=== PATIENT | male | born 1945 | race African-American/Black ===

== ENCOUNTER 2019-03-13 12:11 | Inpatient (IN) | payer MEDICARE ==
[2019-03-13] VITALS (7 sets, daily range): BP systolic 93–134; BP diastolic 42–77
[~2019-03-13] VITALS: Ht 177.8 cm; Wt 56.7 kg
[2019-03-13] MEDS ORDERED: SODIUM CHLORIDE 0.9% 1,000 ML IV ONE (13:06)
[2019-03-13 14:34] LABS: BASOPHILS % 0.4 % (0.0-2.0); HEMATOCRIT. 21.4 % (42.0-52.0); LYMPHOCYTES % 7.8 % (20.0-50.0); MEAN CORPUSCULAR HEMOGLOBIN 27.9 pg (28.0-32.0); MEAN CORPUSCULAR VOLUME 86.8 fL (80.0-94.0); MEAN PLATELET VOLUME 10.4 fl (7.4-10.4); MONOCYTES % 4.9 % (2.0-8.0); NEUTROPHILS % 86.9 % (40.0-76.0); PLATELET 178 x1000/uL (130-400); RED BLOOD CELL COUNT 2.47 mill/uL (4.7-6.1); RED CELL DISTRIBUTION WIDTH 16.5 % (11.6-14.6)
[2019-03-13 14:38] LABS: HEMOGLOBIN. 6.9 g/dL (14.0-18.0)
[2019-03-13 14:41] LABS: CHLORIDE 105 mEq/L (98-107)
[2019-03-13 14:45] LABS: ETHANOL BLOOD < 10 mg/dL
[2019-03-13 15:22] LABS: CLARITY URINE CLOUDY (CLEAR); COLOR URINE DARK YELLOW (YELLOW); KETONES URINE TRACE (NEGATIVE); LEUKOCYTE ESTERASE URINE TRACE (NEGATIVE); NITRITE URINE POSITIVE (NEGATIVE); OCCULT BLOOD URINE NEGATIVE (NEGATIVE); PROTEIN URINE 1+ (NEGATIVE); SPECIFIC GRAVITY URINE 1.026 (1.005-1.030)
[2019-03-13] MEDS ORDERED: PANTOPRAZOLE SODIUM 40 MG/VIAL IV ONE (15:30)
[2019-03-13 15:38] LABS: *AMPHETAMINES SCREEN URINE NEGATIVE (NEGATIVE); *BARBITURATES SCREEN URINE NEGATIVE (NEGATIVE); CANNABINOID URINE SCREEN NEGATIVE (NEGATIVE)
[2019-03-13 15:39] LABS: *BENZODIAZEPINES SCREEN URINE NEGATIVE (NEGATIVE); *COCAINE SCREEN URINE NEGATIVE (NEGATIVE); METHADONE URINE SCREEN NEGATIVE (NEGATIVE); OPIATES URINE SCREEN PRESUMTIVE POSITIVE (NEGATIVE); PHENCYCLIDINE URINE SCREEN NEGATIVE (NEGATIVE)
[2019-03-13 18:16] LABS: PROTHROMBIN TIME > 100.0 sec (9.6-11.0)
[2019-03-13 18:17] LABS: INR > 10.0; PARTIAL THROMBOPLASTIN TIME > 200.0 sec (23.4-31.0)
[2019-03-13] MEDS ORDERED: DEXT 5%/0.45% NACL 1000ML 1,000 ML IV SCH (19:32)
[2019-03-13] MEDS ORDERED: GUAIFENESIN 200MG/10ML SUGAR FREE UDC PO PRN (19:45)
[2019-03-13] MEDS ORDERED: DOCUSATE SODIUM 100MG CAPSULE PO PRN (19:45)
[2019-03-13] MEDS ORDERED: MAGNESIUM/ALUMINUM HYDROXIDE/SIMETHICONE 30ML UDC PO PRN (19:45)
[2019-03-13] MEDS ORDERED: DEXTROSE 50% WATER 50ML SYRINGE IV PRN (19:45)
[2019-03-13] MEDS ORDERED: NA PHOS,M-B/NA PHOS,DI-BA ENEMA 118ML PR PRN (19:45)
[2019-03-13] MEDS ORDERED: ONDANSETRON HCL 4MG/2ML INJ IV PRN (19:45)
[2019-03-13] MEDS ORDERED: DIPHENHYDRAMINE 50MG/ML VIAL IV PRN (19:45)
[2019-03-13] MEDS ORDERED: CLONIDINE 0.1MG TABLET PO PRN (19:45)
[2019-03-13 21:25] LABS: TOTAL IRON BINDING CAPACITY 258 ug/dL (250-450)
[2019-03-13 21:43] LABS: FOLIC ACID (FOLATE) SERUM 4.9 ng/mL (>5.38)
[2019-03-13] MEDS: SODIUM CHLORIDE 0.9% INJ 3ML FLUSH IVF SCH (22:00)
[2019-03-13] MEDS: BLOOD SUGAR DIAGNOSTIC STRIP TEST SCH (22:15)
[2019-03-13] MEDS: INSULIN LISPRO 100 UNITS/ML SUBCUT SCH (22:20)
[2019-03-13] MEDS ORDERED: PHYTONADIONE 10 MG/10 ML ORALSYR PO NR (23:00)
[2019-03-14] VITALS (128 sets, daily range): BP systolic 68–172; BP diastolic 29–105
[2019-03-14] MEDS ORDERED: IPRATROPIUM/ALBUTEROL 0.5-3(2.5)MG/3ML NEB HHN SCH
[2019-03-14] MEDS: CEFTRIAXONE 1 G PREMIX 50 ML IV SCH (00:04)
[2019-03-14] MEDS ORDERED: FURO-152 PO (00:43)
[2019-03-14] MEDS ORDERED: WARF-53 PO (00:43)
[2019-03-14] MEDS ORDERED: SPIR25TA6 PO (00:43)
[2019-03-14] MEDS ORDERED: DIGO125T82 PO (00:43)
[2019-03-14] MEDS ORDERED: POTA10CA42 PO (00:43)
[2019-03-14] MEDS ORDERED: METO-385 PO (00:43)
[2019-03-14] MEDS ORDERED: THEO400T PO (00:43)
[2019-03-14] MEDS ORDERED: AMIO100T4 PO (00:43)
[2019-03-14] MEDS ORDERED: TAMS-11 PO (00:43)
[2019-03-14] MEDS ORDERED: SACU1TAB4 PO (00:43)
[2019-03-14] MEDS ORDERED: CLON-457 PO (00:43)
[2019-03-14] MEDS ORDERED: HYDR-4001 PO (00:45)
[2019-03-14] MEDS ORDERED: BACL-141 PO (00:45)
[2019-03-14 02:07] LABS: CREATINE KINASE MB FRACTION 13.3 ng/mL (0.5-3.6)
[2019-03-14 05:49] LABS: BASOPHILS % 0.2 % (0.0-2.0); EOSINOPHILS % 0.1 % (0.0-5.0); LYMPHOCYTES % 9.8 % (20.0-50.0); MEAN CORPUSCULAR HEMOGLOBIN 28.4 pg (28.0-32.0); MEAN CORPUSCULAR VOLUME 85.6 fL (80.0-94.0); MEAN PLATELET VOLUME 10.2 fl (7.4-10.4); MONOCYTES % 6.8 % (2.0-8.0); NEUTROPHILS % 83.1 % (40.0-76.0); PLATELET 163 x1000/uL (130-400); RED BLOOD CELL COUNT 2.25 mill/uL (4.7-6.1); RED CELL DISTRIBUTION WIDTH 16.2 % (11.6-14.6)
[2019-03-14 06:00] LABS: CHLORIDE 107 mEq/L (98-107)
[2019-03-14] MEDS: SODIUM CHLORIDE 0.9% INJ 3ML FLUSH IVF SCH ×3 (06:00→21:55)
[2019-03-14 06:08] LABS: LDL CHOLESTEROL 53 mg/dL (5-100)
[2019-03-14 06:10] LABS: HDL CHOLESTEROL 34 mg/dL (40-59)
[2019-03-14 06:13] LABS: CREATINE KINASE MB FRACTION 10.6 ng/mL (0.5-3.6)
[2019-03-14 06:21] LABS: CREATINE KINASE 1631 IU/L (39-308)
[2019-03-14 06:28] LABS: HEMOGLOBIN. 6.4 g/dL (14.0-18.0)
[2019-03-14 06:29] LABS: HEMATOCRIT. 19.2 % (42.0-52.0)
[2019-03-14] MEDS: INSULIN LISPRO 100 UNITS/ML SUBCUT SCH ×4 (06:59→21:00)
[2019-03-14] MEDS: BLOOD SUGAR DIAGNOSTIC STRIP TEST SCH ×4 (06:59→21:21)
[2019-03-14] MEDS ORDERED: LACTULOSE 20G/30ML UDC PO NR (08:45)
[2019-03-14 10:12] LABS: BG BASE EXCESS -0.1 mmol/L (-2.0-2.0); BG CARBOXYHEMOGLOBIN 1.6 % (0.5-1.5); BG DEOXYHEMOGLOBIN 1.7 % (0.0-5.0); BG FRACTION INSPIRED OXYGEN 36; BG HCO3 ACT 25.7 mmol/L (22.0-26.0); BG METHEMOGLOBIN 0.3 % (0.0-1.5); BG OXYGEN SATURATION 98.3 % (92.0-98.5); BG OXYHEMOGLOBIN 96.4 % (94.0-97.0); BG PCO2 48.3 mmHg (35.0-45.0); BG PH 7.344 (7.350-7.450); BG SAMPLE SITE RIGHT RADIAL; BG TOTAL HEMOGLOBIN 7.2 g/dL (12.0-18.0); BG VENT MODE NASAL CANNULA
[2019-03-14 12:15] LABS: HEMATOCRIT 21.4 % (42.0-52.0)
[2019-03-14 12:22] LABS: HEMOGLOBIN 6.9 g/dL (14.0-18.0)
[2019-03-14 12:36] LABS: PROTHROMBIN TIME 72.3 sec (9.6-11.0)
[2019-03-14 12:44] LABS: INR 7.7
[2019-03-14] MEDS ORDERED: ETOMIDATE 2MG/ML 10ML VIAL IV ONE (12:55)
[2019-03-14] MEDS ORDERED: SUCCINYLCHOLINE CHLORIDE 200MG/10ML IV ONE (12:55)
[2019-03-14] MEDS ORDERED: NOREPINEPHRINE 8 MG in DEXT 5% WATER 242 ML IV PRN (13:23)
[2019-03-14] MEDS ORDERED: PHYTONADIONE 10MG/ML AMP SUBCUT NR (13:31)
[2019-03-14] MEDS ORDERED: DOPAMINE 800MG PREMIX (DOUBLE) 250 ML IV ONE (13:35)
[2019-03-14] MEDS ORDERED: ALBUMIN HUMAN 25GM/100ML (25%) IV ONE (13:45)
[2019-03-14] MEDS ORDERED: NOREPINEPHRINE 4 MG in DEXT 5% WATER 246 ML IV PRN (13:45)
[2019-03-14] MEDS: NOREPINEPHRINE 8 MG in DEXTROSE 5% WATER 250 ML IV PRN (14:00)
[2019-03-14 14:29] LABS: BG BASE EXCESS 1.9 mmol/L (-2.0-2.0); BG DEOXYHEMOGLOBIN 0.6 % (0.0-5.0); BG FRACTION INSPIRED OXYGEN 100; BG HCO3 ACT 25.7 mmol/L (22.0-26.0); BG METHEMOGLOBIN 0.3 % (0.0-1.5); BG OXYGEN SATURATION 99.4 % (92.0-98.5); BG OXYHEMOGLOBIN 98.1 % (94.0-97.0); BG PCO2 36.4 mmHg (35.0-45.0); BG PH 7.467 (7.350-7.450); BG PO2 535.8 mmHg (75.0-100.0); BG SAMPLE SITE RIGHT RADIAL; BG TIDAL VOLUME(mL) 550 mL; BG VENT MODE VENT - A/C; BG VENT RATE 20 set
[2019-03-14] MEDS ORDERED: NOREPINEPHRINE 8MG in DEXT 5% WATER 250ML (DOUBLE CONC) IV PRN (14:30)
[2019-03-14] MEDS ORDERED: ALBUMIN HUMAN 25GM/100ML (25%) IV NR (14:30)
[2019-03-14] MEDS: IPRATROPIUM/ALBUTEROL 0.5-3(2.5)MG/3ML NEB HHN PRN (16:42)
[2019-03-14] MEDS ORDERED: PROPOFOL 10MG/ML 100ML 100 ML IV PRN (17:15)
[2019-03-14] MEDS ORDERED: VANCOMYCIN 2,000 MG in DEXT 5% WATER 500 ML IV SCH (17:30)
[2019-03-14] MEDS: METRONIDAZOLE 500 MG PREMIX 100 ML IV SCH (17:57)
[2019-03-14] MEDS: IPRATROPIUM/ALBUTEROL 0.5-3(2.5)MG/3ML NEB HHN SCH (20:40)
[2019-03-15] VITALS (107 sets, daily range): BP systolic 61–158; BP diastolic 18–104
[2019-03-15] MEDS: IPRATROPIUM/ALBUTEROL 0.5-3(2.5)MG/3ML NEB HHN SCH ×6 (00:19→21:01)
[2019-03-15] MEDS: METRONIDAZOLE 500 MG PREMIX 100 ML IV SCH ×3 (01:05→18:28)
[2019-03-15 01:17] LABS: HEMATOCRIT 20.3 % (42.0-52.0); HEMOGLOBIN 6.9 g/dL (14.0-18.0)
[2019-03-15 01:28] LABS: INR 2.1; PROTHROMBIN TIME 20.8 sec (9.6-11.0)
[2019-03-15] MEDS: CEFTRIAXONE 1 G PREMIX 50 ML IV SCH ×2 (01:47→22:41)
[2019-03-15] MEDS: LACTULOSE 20G/30ML UDC PO SCH ×3 (02:02→18:28)
[2019-03-15] MEDS: ACETAMINOPHEN 650MG/20.3ML UDC GT PRN ×2 (02:02→19:37)
[2019-03-15 05:59] LABS: BASOPHILS % 0.2 % (0.0-2.0); EOSINOPHILS % 0.1 % (0.0-5.0); LYMPHOCYTES % 9.1 % (20.0-50.0); MEAN CORPUSCULAR HEMOGLOBIN 28.2 pg (28.0-32.0); MEAN CORPUSCULAR VOLUME 84.2 fL (80.0-94.0); MEAN PLATELET VOLUME 10.1 fl (7.4-10.4); MONOCYTES % 7.4 % (2.0-8.0); NEUTROPHILS % 83.2 % (40.0-76.0); PLATELET 139 x1000/uL (130-400); RED CELL DISTRIBUTION WIDTH 16.2 % (11.6-14.6)
[2019-03-15] MEDS: SODIUM CHLORIDE 0.9% INJ 3ML FLUSH IVF SCH ×3 (06:00→22:00)
[2019-03-15 06:05] LABS: CHLORIDE 111 mEq/L (98-107)
[2019-03-15 06:14] LABS: CREATINE KINASE 883 IU/L (39-308)
[2019-03-15 06:15] LABS: HEMATOCRIT. 20.2 % (42.0-52.0); HEMOGLOBIN. 6.8 g/dL (14.0-18.0)
[2019-03-15] MEDS: BLOOD SUGAR DIAGNOSTIC STRIP TEST SCH ×4 (06:36→22:00)
[2019-03-15] MEDS: INSULIN LISPRO 100 UNITS/ML SUBCUT SCH ×4 (06:36→22:09)
[2019-03-15 09:12] LABS: BG CARBOXYHEMOGLOBIN 1.3 % (0.5-1.5); BG DEOXYHEMOGLOBIN 1.6 % (0.0-5.0); BG FRACTION INSPIRED OXYGEN 40; BG HCO3 ACT 29.8 mmol/L (22.0-26.0); BG METHEMOGLOBIN 0.1 % (0.0-1.5); BG OXYGEN SATURATION 98.4 % (92.0-98.5); BG PCO2 39.7 mmHg (35.0-45.0); BG PH 7.493 (7.350-7.450); BG PO2 145.2 mmHg (75.0-100.0); BG SAMPLE SITE RIGHT RADIAL; BG TIDAL VOLUME(mL) 550 mL; BG TOTAL HEMOGLOBIN 6.7 g/dL (12.0-18.0); BG VENT MODE VENT - A/C; BG VENT RATE 20 set
[2019-03-15] MEDS: DEXTROSE 5% WATER 1,000 ML IV SCH (09:54)
[2019-03-15 10:05] LABS: PARTIAL THROMBOPLASTIN TIME 35.7 sec (23.4-31.0); PROTHROMBIN TIME 20.3 sec (9.6-11.0)
[2019-03-15 16:11] LABS: HEMATOCRIT 24.6 % (42.0-52.0); HEMOGLOBIN 8.1 g/dL (14.0-18.0)
[2019-03-15] MEDS ORDERED: LACTULOSE 20G/30ML UDC PO SCH (17:00)
[2019-03-15] MEDS ORDERED: VANCOMYCIN 1500MG in DEXTROSE 5% WATER 250ML IV SCH (18:30)
[2019-03-15 23:24] LABS: HEMATOCRIT 21.7 % (42.0-52.0); HEMOGLOBIN 7.1 g/dL (14.0-18.0)
[2019-03-15 23:33] LABS: INR 1.7; PROTHROMBIN TIME 16.7 sec (9.6-11.0)
[2019-03-16] VITALS (100 sets, daily range): BP systolic 84–162; BP diastolic 19–116
[2019-03-16] MEDS: IPRATROPIUM/ALBUTEROL 0.5-3(2.5)MG/3ML NEB HHN SCH ×5 (00:32→20:29)
[2019-03-16] MEDS: METRONIDAZOLE 500 MG PREMIX 100 ML IV SCH ×3 (01:29→18:33)
[2019-03-16] MEDS: NOREPINEPHRINE 8 MG in DEXTROSE 5% WATER 250 ML IV PRN (03:10)
[2019-03-16] MEDS: PROPOFOL 10MG/ML 100ML 100 ML IV PRN (03:10)
[2019-03-16 05:43] LABS: BASOPHILS % 0.2 % (0.0-2.0); EOSINOPHILS % 0.7 % (0.0-5.0); HEMATOCRIT. 24.3 % (42.0-52.0); HEMOGLOBIN. 8.1 g/dL (14.0-18.0); LYMPHOCYTES % 9.8 % (20.0-50.0); MEAN CORPUSCULAR HEMOGLOBIN 28.3 pg (28.0-32.0); MEAN CORPUSCULAR VOLUME 85.4 fL (80.0-94.0); MEAN PLATELET VOLUME 9.8 fl (7.4-10.4); MONOCYTES % 7.7 % (2.0-8.0); NEUTROPHILS % 81.6 % (40.0-76.0); PLATELET 138 x1000/uL (130-400); RED BLOOD CELL COUNT 2.84 mill/uL (4.7-6.1); RED CELL DISTRIBUTION WIDTH 16.2 % (11.6-14.6)
[2019-03-16] MEDS: SODIUM CHLORIDE 0.9% INJ 3ML FLUSH IVF SCH ×3 (05:48→21:03)
[2019-03-16] MEDS: BLOOD SUGAR DIAGNOSTIC STRIP TEST SCH ×4 (05:48→20:57)
[2019-03-16] MEDS: INSULIN LISPRO 100 UNITS/ML SUBCUT SCH ×4 (05:48→21:00)
[2019-03-16 05:50] LABS: INR 1.6; PARTIAL THROMBOPLASTIN TIME 30.9 sec (23.4-31.0); PROTHROMBIN TIME 15.9 sec (9.6-11.0)
[2019-03-16 05:56] LABS: CHLORIDE 112 mEq/L (98-107)
[2019-03-16 06:07] LABS: PHOSPHORUS 2.6 mg/dL (2.5-4.9)
[2019-03-16 06:22] LABS: CREATINE KINASE 1296 IU/L (39-308)
[2019-03-16 07:28] LABS: BG BASE EXCESS 2.9 mmol/L (-2.0-2.0); BG CARBOXYHEMOGLOBIN 1.3 % (0.5-1.5); BG FRACTION INSPIRED OXYGEN 40; BG HCO3 ACT 28.1 mmol/L (22.0-26.0); BG METHEMOGLOBIN 0.2 % (0.0-1.5); BG OXYHEMOGLOBIN 96.5 % (94.0-97.0); BG PCO2 45.9 mmHg (35.0-45.0); BG PH 7.404 (7.350-7.450); BG PO2 130.8 mmHg (75.0-100.0); BG SAMPLE SITE RIGHT RADIAL; BG TIDAL VOLUME(mL) 550 mL; BG TOTAL HEMOGLOBIN 8.6 g/dL (12.0-18.0); BG VENT MODE VENT - A/C; BG VENT RATE 16 set
[2019-03-16] MEDS ORDERED: POTASSIUM CHLORIDE INJ 40 MEQ in DEXT 5% WATER 250 ML IV NR (08:00)
[2019-03-16] MEDS: LACTULOSE 20G/30ML UDC PO SCH ×3 (08:47→16:40)
[2019-03-16] MEDS ORDERED: LORAZEPAM 2MG/ML CPJ IV PRN (10:08)
[2019-03-16] MEDS: VANCOMYCIN 1 G PREMIX 200 ML IV SCH ×2 (11:31→21:03)
[2019-03-16 12:09] LABS: BG BASE EXCESS 3.5 mmol/L (-2.0-2.0); BG FRACTION INSPIRED OXYGEN 40; BG HCO3 ACT 29.2 mmol/L (22.0-26.0); BG OXYGEN SATURATION 91.9 % (92.0-98.5); BG PCO2 50.8 mmHg (35.0-45.0); BG PH 7.378 (7.350-7.450); BG PO2 64.8 mmHg (75.0-100.0); BG PRESSURE SUPPORT 8; BG SAMPLE SITE RIGHT RADIAL; BG VENT MODE VENT - CPAP
[2019-03-16] MEDS: DEXTROSE 5% WATER 1,000 ML IV SCH (15:12)
[2019-03-16 17:14] LABS: BG BASE EXCESS 1.2 mmol/L (-2.0-2.0); BG CARBOXYHEMOGLOBIN 1.1 % (0.5-1.5); BG DEOXYHEMOGLOBIN 13.2 % (0.0-5.0); BG HCO3 ACT 27.6 mmol/L (22.0-26.0); BG METHEMOGLOBIN 0.1 % (0.0-1.5); BG OXYGEN SATURATION 86.6 % (92.0-98.5); BG OXYHEMOGLOBIN 85.6 % (94.0-97.0); BG PCO2 53.5 mmHg (35.0-45.0); BG PO2 51.6 mmHg (75.0-100.0); BG SAMPLE SITE RIGHT RADIAL; BG TOTAL HEMOGLOBIN 8.9 g/dL (12.0-18.0); BG VENT MODE MASK - AEROSOL
[2019-03-16] MEDS ORDERED: PROPOFOL 10MG/ML 100ML 100 ML IV PRN ×2 (17:30)
[2019-03-16 18:05] LABS: BG BASE EXCESS 0.3 mmol/L (-2.0-2.0); BG CARBOXYHEMOGLOBIN 0.8 % (0.5-1.5); BG DEOXYHEMOGLOBIN 2.7 % (0.0-5.0); BG HCO3 ACT 27.5 mmol/L (22.0-26.0); BG METHEMOGLOBIN 0.4 % (0.0-1.5); BG OXYGEN SATURATION 97.3 % (92.0-98.5); BG OXYHEMOGLOBIN 96.1 % (94.0-97.0); BG PCO2 56.9 mmHg (35.0-45.0); BG PH 7.302 (7.350-7.450); BG PO2 113.9 mmHg (75.0-100.0); BG SAMPLE SITE RIGHT RADIAL; BG TIDAL VOLUME(mL) 500 mL; BG VENT MODE VENT - A/C; BG VENT RATE 16 set
[2019-03-16] MEDS: CEFTRIAXONE 1 G PREMIX 50 ML IV SCH (22:56)
[2019-03-17] VITALS (92 sets, daily range): BP systolic 80–137; BP diastolic 37–85
[2019-03-17] MEDS: IPRATROPIUM/ALBUTEROL 0.5-3(2.5)MG/3ML NEB HHN SCH ×6 (00:11→19:40)
[2019-03-17] MEDS: ACETYLCYSTEINE 100MG/ML 10% VIAL 4ML INH SCH ×2 (00:11→15:00)
[2019-03-17] MEDS: METRONIDAZOLE 500 MG PREMIX 100 ML IV SCH ×3 (02:17→17:04)
[2019-03-17] MEDS: PROPOFOL 10MG/ML 100ML 100 ML IV PRN ×2 (02:18→17:47)
[2019-03-17] MEDS: DEXTROSE 5% WATER 1,000 ML IV SCH ×2 (04:44→17:46)
[2019-03-17] MEDS: SODIUM CHLORIDE 0.9% INJ 3ML FLUSH IVF SCH ×3 (05:03→21:22)
[2019-03-17 05:27] LABS: HEMATOCRIT. 24.6 % (42.0-52.0); HEMOGLOBIN. 8.1 g/dL (14.0-18.0); MEAN CORPUSCULAR HEMOGLOBIN 28.4 pg (28.0-32.0); MEAN CORPUSCULAR VOLUME 86.4 fL (80.0-94.0); MEAN PLATELET VOLUME 9.8 fl (7.4-10.4); PLATELET 158 x1000/uL (130-400); RED BLOOD CELL COUNT 2.85 mill/uL (4.7-6.1); RED CELL DISTRIBUTION WIDTH 16.6 % (11.6-14.6)
[2019-03-17 05:41] LABS: CHLORIDE 112 mEq/L (98-107)
[2019-03-17 05:50] LABS: PHOSPHORUS 2.2 mg/dL (2.5-4.9)
[2019-03-17] MEDS: BLOOD SUGAR DIAGNOSTIC STRIP TEST SCH ×4 (06:07→20:08)
[2019-03-17] MEDS: INSULIN LISPRO 100 UNITS/ML SUBCUT SCH ×4 (06:07→20:08)
[2019-03-17] MEDS: ACETAMINOPHEN 650MG SUPP PR PRN (06:18)
[2019-03-17] MEDS: NOREPINEPHRINE 8 MG in DEXTROSE 5% WATER 250 ML IV PRN (08:13)
[2019-03-17] MEDS: VANCOMYCIN 1 G PREMIX 200 ML IV SCH (08:36)
[2019-03-17] MEDS: LACTULOSE 20G/30ML UDC PO SCH ×2 (09:00→17:04)
[2019-03-17 09:08] LABS: BG BASE EXCESS 2.1 mmol/L (-2.0-2.0); BG CARBOXYHEMOGLOBIN 0.1 % (0.5-1.5); BG DEOXYHEMOGLOBIN 0.8 % (0.0-5.0); BG FRACTION INSPIRED OXYGEN 80; BG HCO3 ACT 27.1 mmol/L (22.0-26.0); BG OXYGEN SATURATION 99.2 % (92.0-98.5); BG OXYHEMOGLOBIN 99.1 % (94.0-97.0); BG PCO2 43.7 mmHg (35.0-45.0); BG PO2 292.1 mmHg (75.0-100.0); BG SAMPLE SITE RIGHT RADIAL; BG TIDAL VOLUME(mL) 500 mL; BG TOTAL HEMOGLOBIN 10.5 g/dL (12.0-18.0); BG VENT MODE VENT - A/C; BG VENT RATE 18 set
[2019-03-17] MEDS ORDERED: VECURONIUM BROMIDE 10 MG/VIAL IV ONE (09:09)
[2019-03-17] MEDS ORDERED: ETOMIDATE 2MG/ML 10ML VIAL IV ONE (09:09)
[2019-03-17] MEDS ORDERED: SODIUM CHLORIDE 0.9% 10ML VIAL ONE (09:09)
[2019-03-17] MEDS ORDERED: POTASSIUM PHOS,M-BASIC-D-BASIC 15 MMOL in DEXT 5% WATER 245 ML IV SCH (10:00)
[2019-03-17] MEDS ORDERED: PHYTONADIONE 10MG/ML AMP SUBCUT NR (11:15)
[2019-03-17 11:35] LABS: NUCLEATED RED BLOOD CELLS 1 /100 WBC; PLATELET ESTIMATE NORMAL
[2019-03-17] MEDS: PANTOPRAZOLE SODIUM 40 MG/VIAL IV SCH (12:06)
[2019-03-17] MEDS: CEFEPIME 1,000 MG in DEXTROSE 5% WATER 50 ML IV SCH ×2 (12:06→20:09)
[2019-03-17] MEDS: ACETAMINOPHEN 650MG/20.3ML UDC GT PRN (20:09)
[2019-03-18] VITALS (95 sets, daily range): BP systolic 83–146; BP diastolic 28–90
[2019-03-18] MEDS: IPRATROPIUM/ALBUTEROL 0.5-3(2.5)MG/3ML NEB HHN SCH ×6 (00:44→19:49)
[2019-03-18] MEDS: ACETYLCYSTEINE 100MG/ML 10% VIAL 4ML INH SCH ×3 (00:46→17:01)
[2019-03-18] MEDS: METRONIDAZOLE 500 MG PREMIX 100 ML IV SCH ×3 (02:44→17:31)
[2019-03-18 04:54] LABS: HEMATOCRIT. 25.4 % (42.0-52.0); HEMOGLOBIN. 8.1 g/dL (14.0-18.0); MEAN CORPUSCULAR VOLUME 87.4 fL (80.0-94.0); MEAN PLATELET VOLUME 10.1 fl (7.4-10.4); PLATELET 155 x1000/uL (130-400); RED BLOOD CELL COUNT 2.91 mill/uL (4.7-6.1); RED CELL DISTRIBUTION WIDTH 16.5 % (11.6-14.6)
[2019-03-18 04:59] LABS: CHLORIDE 111 mEq/L (98-107)
[2019-03-18 05:08] LABS: PHOSPHORUS 3.2 mg/dL (2.5-4.9)
[2019-03-18] MEDS: DEXTROSE 5% WATER 1,000 ML IV SCH ×2 (05:09→11:30)
[2019-03-18] MEDS: VANCOMYCIN 1500MG in DEXTROSE 5% WATER 250ML IV SCH (05:10)
[2019-03-18] MEDS: SODIUM CHLORIDE 0.9% INJ 3ML FLUSH IVF SCH ×3 (05:10→21:23)
[2019-03-18] MEDS: PROPOFOL 10MG/ML 100ML 100 ML IV PRN ×2 (05:11→17:16)
[2019-03-18 05:53] LABS: INR 1.3; PARTIAL THROMBOPLASTIN TIME 24.7 sec (23.4-31.0)
[2019-03-18] MEDS: INSULIN LISPRO 100 UNITS/ML SUBCUT SCH ×4 (05:59→21:00)
[2019-03-18] MEDS: BLOOD SUGAR DIAGNOSTIC STRIP TEST SCH ×4 (05:59→21:16)
[2019-03-18] MEDS ORDERED: PHYTONADIONE 10MG/ML AMP SUBCUT NR (06:00)
[2019-03-18] MEDS: NOREPINEPHRINE 8 MG in DEXTROSE 5% WATER 250 ML IV PRN (07:37)
[2019-03-18 07:38] LABS: BG CARBOXYHEMOGLOBIN 1.1 % (0.5-1.5); BG FRACTION INSPIRED OXYGEN 40; BG HCO3 ACT 27.6 mmol/L (22.0-26.0); BG METHEMOGLOBIN 0.3 % (0.0-1.5); BG OXYHEMOGLOBIN 96.6 % (94.0-97.0); BG PCO2 48.2 mmHg (35.0-45.0); BG PH 7.375 (7.350-7.450); BG PO2 114.6 mmHg (75.0-100.0); BG SAMPLE SITE RIGHT RADIAL; BG TIDAL VOLUME(mL) 500 mL; BG TOTAL HEMOGLOBIN 8.4 g/dL (12.0-18.0); BG VENT MODE VENT - A/C; BG VENT RATE 18 set
[2019-03-18] MEDS: LACTULOSE 20G/30ML UDC PO SCH ×2 (09:00→18:18)
[2019-03-18] MEDS: PANTOPRAZOLE SODIUM 40 MG/VIAL IV SCH (09:19)
[2019-03-18] MEDS: CEFEPIME 1,000 MG in DEXTROSE 5% WATER 50 ML IV SCH ×2 (09:20→21:23)
[2019-03-18 09:49] LABS: PLATELET ESTIMATE NORMAL
[2019-03-18] MEDS ORDERED: ALBUMIN HUMAN 25GM/100ML (25%) IV SCH (10:00)
[2019-03-18] MEDS ORDERED: MIDAZOLAM HCL 5 MG/5 ML VIAL ONE (14:38)
[2019-03-18] MEDS ORDERED: FENTANYL CITRATE/PF 50MCG/ML 2ML VIAL ONE (14:38)
[2019-03-18] MEDS ORDERED: SIMETHICONE 40 MG/0.6 ML 30ML ONE (16:30)
[2019-03-19] VITALS (79 sets, daily range): BP systolic 75–136; BP diastolic 45–73
[2019-03-19] MEDS: ACETYLCYSTEINE 100MG/ML 10% VIAL 4ML INH SCH ×2 (00:08→08:06)
[2019-03-19] MEDS: IPRATROPIUM/ALBUTEROL 0.5-3(2.5)MG/3ML NEB HHN SCH ×6 (00:08→20:33)
[2019-03-19] MEDS: VANCOMYCIN 1500MG in DEXTROSE 5% WATER 250ML IV SCH (00:32)
[2019-03-19] MEDS: DEXTROSE 5% WATER 1,000 ML IV SCH ×2 (00:32→21:18)
[2019-03-19] MEDS: METRONIDAZOLE 500 MG PREMIX 100 ML IV SCH ×3 (01:47→16:40)
[2019-03-19] MEDS: PROPOFOL 10MG/ML 100ML 100 ML IV PRN (03:23)
[2019-03-19 05:16] LABS: HEMATOCRIT. 25.1 % (42.0-52.0); MEAN CORPUSCULAR HEMOGLOBIN 28.1 pg (28.0-32.0); MEAN CORPUSCULAR VOLUME 88.2 fL (80.0-94.0); MEAN PLATELET VOLUME 10.4 fl (7.4-10.4); PLATELET 163 x1000/uL (130-400); RED BLOOD CELL COUNT 2.84 mill/uL (4.7-6.1); RED CELL DISTRIBUTION WIDTH 16.9 % (11.6-14.6)
[2019-03-19 05:46] LABS: PHOSPHORUS 3.3 mg/dL (2.5-4.9)
[2019-03-19] MEDS: BLOOD SUGAR DIAGNOSTIC STRIP TEST SCH ×4 (06:06→21:18)
[2019-03-19] MEDS: SODIUM CHLORIDE 0.9% INJ 3ML FLUSH IVF SCH ×3 (06:06→21:18)
[2019-03-19] MEDS: INSULIN LISPRO 100 UNITS/ML SUBCUT SCH ×4 (06:06→21:00)
[2019-03-19] MEDS: NOREPINEPHRINE 8 MG in DEXTROSE 5% WATER 250 ML IV PRN ×2 (06:37→08:08)
[2019-03-19 07:44] LABS: PLATELET ESTIMATE NORMAL
[2019-03-19] MEDS: PANTOPRAZOLE SODIUM 40 MG/VIAL IV SCH (08:08)
[2019-03-19] MEDS: CEFEPIME 1,000 MG in DEXTROSE 5% WATER 50 ML IV SCH ×2 (08:09→21:18)
[2019-03-19 08:17] LABS: BG BASE EXCESS 2.4 mmol/L (-2.0-2.0); BG CARBOXYHEMOGLOBIN 0.7 % (0.5-1.5); BG DEOXYHEMOGLOBIN 1.4 % (0.0-5.0); BG FRACTION INSPIRED OXYGEN 40; BG HCO3 ACT 27.6 mmol/L (22.0-26.0); BG METHEMOGLOBIN 0.4 % (0.0-1.5); BG OXYGEN SATURATION 98.6 % (92.0-98.5); BG OXYHEMOGLOBIN 97.5 % (94.0-97.0); BG PCO2 46.4 mmHg (35.0-45.0); BG PH 7.393 (7.350-7.450); BG PO2 141.6 mmHg (75.0-100.0); BG SAMPLE SITE RIGHT RADIAL; BG TIDAL VOLUME(mL) 500 mL; BG TOTAL HEMOGLOBIN 7.7 g/dL (12.0-18.0); BG VENT MODE VENT - A/C; BG VENT RATE 18 set
[2019-03-19] MEDS: LACTULOSE 20G/30ML UDC PO SCH ×2 (10:25→16:32)
[2019-03-19] MEDS ORDERED: VANCOMYCIN 1500MG in DEXTROSE 5% WATER 250ML IV NR (19:00)
[2019-03-20] VITALS (89 sets, daily range): BP systolic 91–139; BP diastolic 49–74
[2019-03-20] MEDS: IPRATROPIUM/ALBUTEROL 0.5-3(2.5)MG/3ML NEB HHN SCH ×6 (00:42→20:30)
[2019-03-20] MEDS: METRONIDAZOLE 500 MG PREMIX 100 ML IV SCH ×3 (02:15→17:41)
[2019-03-20 05:42] LABS: HEMATOCRIT. 23.4 % (42.0-52.0); HEMOGLOBIN. 7.7 g/dL (14.0-18.0); MEAN CORPUSCULAR HEMOGLOBIN 28.6 pg (28.0-32.0); MEAN PLATELET VOLUME 10.5 fl (7.4-10.4); PLATELET 188 x1000/uL (130-400); RED BLOOD CELL COUNT 2.69 mill/uL (4.7-6.1); RED CELL DISTRIBUTION WIDTH 16.8 % (11.6-14.6)
[2019-03-20] MEDS ORDERED: DILTIAZEM HCL 5MG/ML 5ML VIAL IV ONE (05:45)
[2019-03-20 05:54] LABS: PHOSPHORUS 2.9 mg/dL (2.5-4.9)
[2019-03-20] MEDS: INSULIN LISPRO 100 UNITS/ML SUBCUT SCH ×4 (06:23→20:26)
[2019-03-20] MEDS: BLOOD SUGAR DIAGNOSTIC STRIP TEST SCH ×4 (06:23→20:26)
[2019-03-20] MEDS: SODIUM CHLORIDE 0.9% INJ 3ML FLUSH IVF SCH ×3 (06:23→21:48)
[2019-03-20 07:32] LABS: PLATELET ESTIMATE NORMAL
[2019-03-20 07:46] LABS: BG CARBOXYHEMOGLOBIN 1.1 % (0.5-1.5); BG DEOXYHEMOGLOBIN 1.3 % (0.0-5.0); BG FRACTION INSPIRED OXYGEN 40; BG HCO3 ACT 27.1 mmol/L (22.0-26.0); BG METHEMOGLOBIN 0.4 % (0.0-1.5); BG OXYGEN SATURATION 98.7 % (92.0-98.5); BG OXYHEMOGLOBIN 97.2 % (94.0-97.0); BG PH 7.397 (7.350-7.450); BG PO2 133.7 mmHg (75.0-100.0); BG PRESSURE SUPPORT 12; BG SAMPLE SITE RIGHT RADIAL; BG TIDAL VOLUME(mL) 500 mL; BG TOTAL HEMOGLOBIN 7.9 g/dL (12.0-18.0); BG VENT MODE VENT - SIMV; BG VENT RATE 8 set
[2019-03-20] MEDS: LACTULOSE 20G/30ML UDC PO SCH ×2 (08:26→16:17)
[2019-03-20] MEDS: PANTOPRAZOLE SODIUM 40 MG/VIAL IV SCH (08:26)
[2019-03-20] MEDS: CEFEPIME 1,000 MG in DEXTROSE 5% WATER 50 ML IV SCH (08:27)
[2019-03-20] MEDS: DEXT 5% WATER + KCL 20MEQ/L 1,000 ML IV SCH (11:54)
[2019-03-21] VITALS (91 sets, daily range): BP systolic 86–162; BP diastolic 46–94
[2019-03-21] MEDS: IPRATROPIUM/ALBUTEROL 0.5-3(2.5)MG/3ML NEB HHN SCH ×6 (00:22→20:26)
[2019-03-21] MEDS: METRONIDAZOLE 500 MG PREMIX 100 ML IV SCH ×3 (01:37→17:19)
[2019-03-21] MEDS: DEXT 5% WATER + KCL 20MEQ/L 1,000 ML IV SCH ×2 (01:37→17:19)
[2019-03-21 05:34] LABS: BASOPHILS % 0.2 % (0.0-2.0); EOSINOPHILS % 2.8 % (0.0-5.0); HEMATOCRIT. 27.3 % (42.0-52.0); HEMOGLOBIN. 8.6 g/dL (14.0-18.0); LYMPHOCYTES % 11.3 % (20.0-50.0); MEAN CORPUSCULAR HEMOGLOBIN 27.8 pg (28.0-32.0); MEAN CORPUSCULAR VOLUME 88.3 fL (80.0-94.0); MEAN PLATELET VOLUME 10.6 fl (7.4-10.4); MONOCYTES % 8.3 % (2.0-8.0); NEUTROPHILS % 77.4 % (40.0-76.0); PLATELET 247 x1000/uL (130-400); RED BLOOD CELL COUNT 3.09 mill/uL (4.7-6.1); RED CELL DISTRIBUTION WIDTH 17.1 % (11.6-14.6)
[2019-03-21] MEDS: SODIUM CHLORIDE 0.9% INJ 3ML FLUSH IVF SCH ×3 (05:34→22:12)
[2019-03-21 05:40] LABS: CHLORIDE 107 mEq/L (98-107)
[2019-03-21 05:51] LABS: CREATINE KINASE 152 IU/L (39-308)
[2019-03-21] MEDS: BLOOD SUGAR DIAGNOSTIC STRIP TEST SCH ×4 (06:34→21:00)
[2019-03-21] MEDS: INSULIN LISPRO 100 UNITS/ML SUBCUT SCH ×4 (06:34→22:12)
[2019-03-21 08:57] LABS: BG BASE EXCESS 3.4 mmol/L (-2.0-2.0); BG CARBOXYHEMOGLOBIN 1.1 % (0.5-1.5); BG DEOXYHEMOGLOBIN 1.3 % (0.0-5.0); BG FRACTION INSPIRED OXYGEN 40; BG HCO3 ACT 28.8 mmol/L (22.0-26.0); BG METHEMOGLOBIN 0.3 % (0.0-1.5); BG OXYGEN SATURATION 98.7 % (92.0-98.5); BG OXYHEMOGLOBIN 97.3 % (94.0-97.0); BG PCO2 48.6 mmHg (35.0-45.0); BG PH 7.391 (7.350-7.450); BG PO2 131.6 mmHg (75.0-100.0); BG PRESSURE SUPPORT 12; BG SAMPLE SITE RIGHT RADIAL; BG TIDAL VOLUME(mL) 500 mL; BG TOTAL HEMOGLOBIN 8.2 g/dL (12.0-18.0); BG VENT MODE VENT - SIMV; BG VENT RATE 8 set
[2019-03-21] MEDS: PANTOPRAZOLE SODIUM 40 MG/VIAL IV SCH (08:59)
[2019-03-21] MEDS: CEFEPIME 1,000 MG in DEXTROSE 5% WATER 50 ML IV SCH (08:59)
[2019-03-21] MEDS: LACTULOSE 20G/30ML UDC PO SCH ×2 (08:59→17:19)
[2019-03-22] VITALS (96 sets, daily range): BP systolic 92–175; BP diastolic 46–92
[2019-03-22] MEDS: IPRATROPIUM/ALBUTEROL 0.5-3(2.5)MG/3ML NEB HHN SCH ×6 (00:31→20:27)
[2019-03-22] MEDS: METRONIDAZOLE 500 MG PREMIX 100 ML IV SCH ×3 (02:36→17:10)
[2019-03-22 05:52] LABS: HEMATOCRIT. 25.1 % (42.0-52.0); MEAN CORPUSCULAR HEMOGLOBIN 28.1 pg (28.0-32.0); MEAN PLATELET VOLUME 10.1 fl (7.4-10.4); PLATELET 236 x1000/uL (130-400); RED BLOOD CELL COUNT 2.85 mill/uL (4.7-6.1); RED CELL DISTRIBUTION WIDTH 17.4 % (11.6-14.6)
[2019-03-22 06:15] LABS: CHLORIDE 109 mEq/L (98-107)
[2019-03-22] MEDS: BLOOD SUGAR DIAGNOSTIC STRIP TEST SCH ×4 (06:17→21:40)
[2019-03-22] MEDS: INSULIN LISPRO 100 UNITS/ML SUBCUT SCH ×4 (06:17→21:00)
[2019-03-22] MEDS: SODIUM CHLORIDE 0.9% INJ 3ML FLUSH IVF SCH ×3 (06:17→21:40)
[2019-03-22 06:25] LABS: PHOSPHORUS 3.1 mg/dL (2.5-4.9)
[2019-03-22 08:09] LABS: BG BASE EXCESS 4.2 mmol/L (-2.0-2.0); BG CARBOXYHEMOGLOBIN 1.4 % (0.5-1.5); BG DEOXYHEMOGLOBIN 1.1 % (0.0-5.0); BG FRACTION INSPIRED OXYGEN 40; BG HCO3 ACT 29.6 mmol/L (22.0-26.0); BG METHEMOGLOBIN 0.3 % (0.0-1.5); BG OXYGEN SATURATION 98.9 % (92.0-98.5); BG OXYHEMOGLOBIN 97.2 % (94.0-97.0); BG PCO2 49.6 mmHg (35.0-45.0); BG PH 7.393 (7.350-7.450); BG PO2 150.6 mmHg (75.0-100.0); BG PRESSURE SUPPORT 12; BG SAMPLE SITE RIGHT RADIAL; BG TIDAL VOLUME(mL) 500 mL; BG TOTAL HEMOGLOBIN 7.3 g/dL (12.0-18.0); BG VENT MODE VENT - SIMV; BG VENT RATE 8 set
[2019-03-22 08:27] LABS: PLATELET ESTIMATE NORMAL
[2019-03-22] MEDS: CEFEPIME 1,000 MG in DEXTROSE 5% WATER 50 ML IV SCH (08:44)
[2019-03-22] MEDS: DEXT 5% WATER + KCL 20MEQ/L 1,000 ML IV SCH (08:44)
[2019-03-22] MEDS: LACTULOSE 20G/30ML UDC PO SCH ×2 (08:45→17:09)
[2019-03-22] MEDS: PANTOPRAZOLE SODIUM 40 MG/VIAL IV SCH (08:45)
[2019-03-23] VITALS (119 sets, daily range): BP systolic 84–140; BP diastolic 29–90
[2019-03-23] MEDS: IPRATROPIUM/ALBUTEROL 0.5-3(2.5)MG/3ML NEB HHN SCH ×6 (00:13→20:53)
[2019-03-23] MEDS: METRONIDAZOLE 500 MG PREMIX 100 ML IV SCH ×3 (00:28→17:57)
[2019-03-23] MEDS: DEXT 5% WATER + KCL 20MEQ/L 1,000 ML IV SCH ×2 (00:28→16:13)
[2019-03-23 06:00] LABS: BASOPHILS % 0.7 % (0.0-2.0); HEMATOCRIT. 25.8 % (42.0-52.0); HEMOGLOBIN. 8.2 g/dL (14.0-18.0); LYMPHOCYTES % 10.1 % (20.0-50.0); MEAN CORPUSCULAR HEMOGLOBIN 28.1 pg (28.0-32.0); MEAN CORPUSCULAR VOLUME 88.9 fL (80.0-94.0); MEAN PLATELET VOLUME 10.3 fl (7.4-10.4); MONOCYTES % 8.5 % (2.0-8.0); NEUTROPHILS % 78.7 % (40.0-76.0); PLATELET 270 x1000/uL (130-400); RED CELL DISTRIBUTION WIDTH 17.5 % (11.6-14.6)
[2019-03-23] MEDS: SODIUM CHLORIDE 0.9% INJ 3ML FLUSH IVF SCH ×3 (06:00→21:04)
[2019-03-23] MEDS: INSULIN LISPRO 100 UNITS/ML SUBCUT SCH ×4 (06:41→21:00)
[2019-03-23] MEDS: BLOOD SUGAR DIAGNOSTIC STRIP TEST SCH ×4 (06:41→21:04)
[2019-03-23] MEDS: PANTOPRAZOLE SODIUM 40 MG/VIAL IV SCH (08:38)
[2019-03-23] MEDS: CEFEPIME 1,000 MG in DEXTROSE 5% WATER 50 ML IV SCH (08:38)
[2019-03-23] MEDS: LACTULOSE 20G/30ML UDC PO SCH ×4 (08:38→16:42)
[2019-03-23] MEDS ORDERED: VANCOMYCIN 1 G PREMIX 200 ML IV NR (11:00)
[2019-03-24] VITALS (89 sets, daily range): BP systolic 15–156; BP diastolic 33–98
[2019-03-24] MEDS: IPRATROPIUM/ALBUTEROL 0.5-3(2.5)MG/3ML NEB HHN SCH ×6 (00:40→20:14)
[2019-03-24] MEDS: METRONIDAZOLE 500 MG PREMIX 100 ML IV SCH ×3 (01:08→18:57)
[2019-03-24 05:30] LABS: BASOPHILS % 0.9 % (0.0-2.0); EOSINOPHILS % 3.2 % (0.0-5.0); HEMATOCRIT. 25.6 % (42.0-52.0); HEMOGLOBIN. 8.1 g/dL (14.0-18.0); LYMPHOCYTES % 10.3 % (20.0-50.0); MEAN CORPUSCULAR HEMOGLOBIN 28.4 pg (28.0-32.0); MEAN CORPUSCULAR VOLUME 89.3 fL (80.0-94.0); MEAN PLATELET VOLUME 10.2 fl (7.4-10.4); MONOCYTES % 8.3 % (2.0-8.0); NEUTROPHILS % 77.3 % (40.0-76.0); PLATELET 267 x1000/uL (130-400); RED BLOOD CELL COUNT 2.86 mill/uL (4.7-6.1); RED CELL DISTRIBUTION WIDTH 17.8 % (11.6-14.6)
[2019-03-24 05:42] LABS: PHOSPHORUS 3.6 mg/dL (2.5-4.9)
[2019-03-24] MEDS: SODIUM CHLORIDE 0.9% INJ 3ML FLUSH IVF SCH ×3 (06:00→21:13)
[2019-03-24] MEDS: DEXT 5% WATER + KCL 20MEQ/L 1,000 ML IV SCH ×2 (06:23→23:12)
[2019-03-24] MEDS: BLOOD SUGAR DIAGNOSTIC STRIP TEST SCH ×4 (06:30→21:12)
[2019-03-24] MEDS: INSULIN LISPRO 100 UNITS/ML SUBCUT SCH ×4 (07:00→21:00)
[2019-03-24 08:25] LABS: BG BASE EXCESS 1.6 mmol/L (-2.0-2.0); BG CARBOXYHEMOGLOBIN 0.8 % (0.5-1.5); BG DEOXYHEMOGLOBIN 1.5 % (0.0-5.0); BG FRACTION INSPIRED OXYGEN 40; BG HCO3 ACT 27.1 mmol/L (22.0-26.0); BG METHEMOGLOBIN 0.3 % (0.0-1.5); BG OXYGEN SATURATION 98.5 % (92.0-98.5); BG OXYHEMOGLOBIN 97.4 % (94.0-97.0); BG PCO2 47.6 mmHg (35.0-45.0); BG PH 7.374 (7.350-7.450); BG PO2 114.6 mmHg (75.0-100.0); BG SAMPLE SITE RIGHT RADIAL; BG TIDAL VOLUME(mL) 500 mL; BG TOTAL HEMOGLOBIN 8.2 g/dL (12.0-18.0); BG VENT MODE VENT - A/C; BG VENT RATE 18 set
[2019-03-24] MEDS: CEFEPIME 1,000 MG in DEXTROSE 5% WATER 50 ML IV SCH (08:52)
[2019-03-24] MEDS: PANTOPRAZOLE SODIUM 40 MG/VIAL IV SCH (08:52)
[2019-03-24] MEDS: LACTULOSE 20G/30ML UDC PO SCH ×3 (08:52→18:57)
[2019-03-25] VITALS (60 sets, daily range): BP systolic 87–147; BP diastolic 33–91
[2019-03-25] MEDS: IPRATROPIUM/ALBUTEROL 0.5-3(2.5)MG/3ML NEB HHN SCH ×7 (00:22→23:57)
[2019-03-25 05:24] LABS: HEMATOCRIT. 24.5 % (42.0-52.0); HEMOGLOBIN. 7.8 g/dL (14.0-18.0); MEAN CORPUSCULAR HEMOGLOBIN 28.3 pg (28.0-32.0); MEAN CORPUSCULAR VOLUME 89.3 fL (80.0-94.0); MEAN PLATELET VOLUME 10.3 fl (7.4-10.4); PLATELET 254 x1000/uL (130-400); RED BLOOD CELL COUNT 2.74 mill/uL (4.7-6.1); RED CELL DISTRIBUTION WIDTH 17.9 % (11.6-14.6)
[2019-03-25 05:32] LABS: PHOSPHORUS 3.9 mg/dL (2.5-4.9)
[2019-03-25] MEDS: SODIUM CHLORIDE 0.9% INJ 3ML FLUSH IVF SCH ×2 (06:00→22:00)
[2019-03-25] MEDS: BLOOD SUGAR DIAGNOSTIC STRIP TEST SCH ×4 (06:44→23:49)
[2019-03-25] MEDS: INSULIN LISPRO 100 UNITS/ML SUBCUT SCH ×3 (06:45→23:49)
[2019-03-25 08:42] LABS: BG BASE EXCESS 1.7 mmol/L (-2.0-2.0); BG CARBOXYHEMOGLOBIN 1.2 % (0.5-1.5); BG DEOXYHEMOGLOBIN 0.9 % (0.0-5.0); BG FRACTION INSPIRED OXYGEN 40; BG HCO3 ACT 27.5 mmol/L (22.0-26.0); BG METHEMOGLOBIN 0.4 % (0.0-1.5); BG OXYGEN SATURATION 99.1 % (92.0-98.5); BG OXYHEMOGLOBIN 97.5 % (94.0-97.0); BG PCO2 49.4 mmHg (35.0-45.0); BG PH 7.363 (7.350-7.450); BG PO2 141.3 mmHg (75.0-100.0); BG SAMPLE SITE RIGHT RADIAL; BG TIDAL VOLUME(mL) 500 mL; BG TOTAL HEMOGLOBIN 8.4 g/dL (12.0-18.0); BG VENT MODE VENT - A/C; BG VENT RATE 18 set
[2019-03-25] MEDS: LACTULOSE 20G/30ML UDC PO SCH (08:53)
[2019-03-25] MEDS: PANTOPRAZOLE SODIUM 40 MG/VIAL IV SCH (08:53)
[2019-03-25 09:43] LABS: PLATELET ESTIMATE NORMAL
[2019-03-25 12:28] LABS: INR 1.2; PROTHROMBIN TIME 11.9 sec (9.6-11.0)
[2019-03-25] MEDS: ACETAMINOPHEN 650MG/20.3ML UDC GT PRN (13:14)
[2019-03-26] VITALS (47 sets, daily range): BP systolic 93–138; BP diastolic 38–86
[2019-03-26] MEDS: IPRATROPIUM/ALBUTEROL 0.5-3(2.5)MG/3ML NEB HHN SCH ×4 (04:18→20:09)
[2019-03-26 04:53] LABS: BASOPHILS % 1.2 % (0.0-2.0); EOSINOPHILS % 3.3 % (0.0-5.0); HEMATOCRIT. 23.7 % (42.0-52.0); HEMOGLOBIN. 7.5 g/dL (14.0-18.0); LYMPHOCYTES % 7.3 % (20.0-50.0); MEAN CORPUSCULAR HEMOGLOBIN 28.3 pg (28.0-32.0); MEAN CORPUSCULAR VOLUME 89.6 fL (80.0-94.0); MEAN PLATELET VOLUME 10.4 fl (7.4-10.4); MONOCYTES % 6.2 % (2.0-8.0); PLATELET 243 x1000/uL (130-400); RED BLOOD CELL COUNT 2.64 mill/uL (4.7-6.1); RED CELL DISTRIBUTION WIDTH 17.6 % (11.6-14.6)
[2019-03-26 04:59] LABS: INR 1.2; PARTIAL THROMBOPLASTIN TIME 28.1 sec (23.4-31.0)
[2019-03-26 05:14] LABS: PHOSPHORUS 4.4 mg/dL (2.5-4.9)
[2019-03-26] MEDS: INSULIN LISPRO 100 UNITS/ML SUBCUT SCH ×3 (06:00→21:00)
[2019-03-26] MEDS: SODIUM CHLORIDE 0.9% INJ 3ML FLUSH IVF SCH ×2 (06:03→21:58)
[2019-03-26] MEDS: BLOOD SUGAR DIAGNOSTIC STRIP TEST SCH ×3 (06:03→21:00)
[2019-03-26 08:00] LABS: BG BASE EXCESS 1.5 mmol/L (-2.0-2.0); BG DEOXYHEMOGLOBIN 2.5 % (0.0-5.0); BG FRACTION INSPIRED OXYGEN 40; BG HCO3 ACT 26.7 mmol/L (22.0-26.0); BG METHEMOGLOBIN 0.1 % (0.0-1.5); BG OXYGEN SATURATION 97.5 % (92.0-98.5); BG OXYHEMOGLOBIN 96.4 % (94.0-97.0); BG PCO2 45.5 mmHg (35.0-45.0); BG PH 7.387 (7.350-7.450); BG PO2 99.3 mmHg (75.0-100.0); BG SAMPLE SITE RIGHT RADIAL; BG TIDAL VOLUME(mL) 500 mL; BG TOTAL HEMOGLOBIN 8.7 g/dL (12.0-18.0); BG VENT MODE VENT - A/C; BG VENT RATE 18 set
[2019-03-26] MEDS ORDERED: CEFAZOLIN 1000MG PREMIX 50 ML IV NR (09:00)
[2019-03-26] MEDS: LACTULOSE 20G/30ML UDC PO SCH (09:00)
[2019-03-26] MEDS: PANTOPRAZOLE SODIUM 40 MG/VIAL IV SCH (09:10)
[2019-03-26] MEDS: DEXT 5%/0.45% NACL 1000ML 1,000 ML IV SCH (09:21)
[2019-03-26] MEDS ORDERED: MIDAZOLAM HCL 5 MG/5 ML VIAL ONE (13:57)
[2019-03-26] MEDS ORDERED: FENTANYL CITRATE/PF 50MCG/ML 2ML VIAL ONE (13:57)
[2019-03-26] MEDS ORDERED: MIDAZOLAM HCL 5 MG/5 ML VIAL IV PRN (14:14)
[2019-03-27] VITALS (70 sets, daily range): BP systolic 95–153; BP diastolic 39–103
[2019-03-27] MEDS: IPRATROPIUM/ALBUTEROL 0.5-3(2.5)MG/3ML NEB HHN SCH ×8 (00:57→23:36)
[2019-03-27] MEDS: ACETYLCYSTEINE 100MG/ML 10% VIAL 4ML INH SCH ×4 (00:57→23:36)
[2019-03-27] MEDS: DEXT 5%/0.45% NACL 1000ML 1,000 ML IV SCH ×2 (05:02→23:03)
[2019-03-27] MEDS: SODIUM CHLORIDE 0.9% INJ 3ML FLUSH IVF SCH ×3 (05:02→23:03)
[2019-03-27] MEDS: INSULIN LISPRO 100 UNITS/ML SUBCUT SCH ×5 (06:00→23:26)
[2019-03-27] MEDS: BLOOD SUGAR DIAGNOSTIC STRIP TEST SCH ×5 (06:14→23:26)
[2019-03-27 06:38] LABS: BASOPHILS % 0.8 % (0.0-2.0); EOSINOPHILS % 2.3 % (0.0-5.0); HEMATOCRIT. 25.3 % (42.0-52.0); HEMOGLOBIN. 7.9 g/dL (14.0-18.0); LYMPHOCYTES % 10.3 % (20.0-50.0); MEAN CORPUSCULAR HEMOGLOBIN 28.3 pg (28.0-32.0); MEAN CORPUSCULAR VOLUME 90.5 fL (80.0-94.0); MEAN PLATELET VOLUME 10.5 fl (7.4-10.4); MONOCYTES % 6.4 % (2.0-8.0); NEUTROPHILS % 80.2 % (40.0-76.0); PLATELET 223 x1000/uL (130-400); RED CELL DISTRIBUTION WIDTH 18.3 % (11.6-14.6)
[2019-03-27] MEDS: LORAZEPAM 2MG/ML CPJ IV PRN (06:45)
[2019-03-27 06:53] LABS: PHOSPHORUS 4.6 mg/dL (2.5-4.9)
[2019-03-27] MEDS: LACTULOSE 20G/30ML UDC PO SCH (09:00)
[2019-03-27] MEDS ORDERED: PREDNISONE 20MG TABLET PO SCH (10:41)
[2019-03-27] MEDS: FAMOTIDINE 20MG/2ML VIAL IV SCH (11:17)
[2019-03-27] MEDS: METOCLOPRAMIDE HCL 10MG/2ML VIAL IV SCH ×3 (11:50→23:09)
[2019-03-27] MEDS: METHYLPREDNISOLONE SOD SUCC 40 MG/ML VIAL IV SCH (11:50)
[2019-03-27 11:57] LABS: BG BASE EXCESS 0.7 mmol/L (-2.0-2.0); BG CARBOXYHEMOGLOBIN 0.2 % (0.5-1.5); BG DEOXYHEMOGLOBIN 1.3 % (0.0-5.0); BG FRACTION INSPIRED OXYGEN 40; BG HCO3 ACT 24.9 mmol/L (22.0-26.0); BG METHEMOGLOBIN 0.2 % (0.0-1.5); BG OXYGEN SATURATION 98.7 % (92.0-98.5); BG OXYHEMOGLOBIN 98.3 % (94.0-97.0); BG PCO2 38.1 mmHg (35.0-45.0); BG PH 7.434 (7.350-7.450); BG PO2 136.8 mmHg (75.0-100.0); BG SAMPLE SITE RIGHT RADIAL; BG TIDAL VOLUME(mL) 500 mL; BG TOTAL HEMOGLOBIN 8.5 g/dL (12.0-18.0); BG VENT MODE VENT - A/C; BG VENT RATE 18 set
[2019-03-28] VITALS (12 sets, daily range): BP systolic 100–142; BP diastolic 62–83
[2019-03-28] MEDS: LORAZEPAM 2MG/ML CPJ IV PRN (01:04)
[2019-03-28] MEDS: ACETAMINOPHEN 650MG SUPP PR PRN (01:04)
[2019-03-28] MEDS: IPRATROPIUM/ALBUTEROL 0.5-3(2.5)MG/3ML NEB HHN SCH ×6 (03:15→23:37)
[2019-03-28] MEDS: BLOOD SUGAR DIAGNOSTIC STRIP TEST SCH ×4 (05:13→23:51)
[2019-03-28] MEDS: METOCLOPRAMIDE HCL 10MG/2ML VIAL IV SCH ×4 (05:14→23:51)
[2019-03-28] MEDS: SODIUM CHLORIDE 0.9% INJ 3ML FLUSH IVF SCH ×3 (05:18→21:03)
[2019-03-28] MEDS: INSULIN LISPRO 100 UNITS/ML SUBCUT SCH ×4 (05:18→23:51)
[2019-03-28 07:31] LABS: HEMATOCRIT. 22.6 % (42.0-52.0); HEMOGLOBIN. 7.2 g/dL (14.0-18.0); MEAN CORPUSCULAR HEMOGLOBIN 28.4 pg (28.0-32.0); MEAN CORPUSCULAR VOLUME 89.5 fL (80.0-94.0); MEAN PLATELET VOLUME 10.8 fl (7.4-10.4); PLATELET 204 x1000/uL (130-400); RED BLOOD CELL COUNT 2.53 mill/uL (4.7-6.1); RED CELL DISTRIBUTION WIDTH 17.9 % (11.6-14.6)
[2019-03-28 07:50] LABS: TOTAL IRON BINDING CAPACITY 140 ug/dL (250-450)
[2019-03-28] MEDS: ACETYLCYSTEINE 100MG/ML 10% VIAL 4ML INH SCH ×3 (08:03→23:37)
[2019-03-28] MEDS: METHYLPREDNISOLONE SOD SUCC 40 MG/ML VIAL IV SCH (08:38)
[2019-03-28] MEDS: LACTULOSE 20G/30ML UDC PO SCH (08:38)
[2019-03-28] MEDS: FAMOTIDINE 20MG/2ML VIAL IV SCH (08:38)
[2019-03-28] MEDS ORDERED: MEROPENEM 500 MG in SODIUM CHLORIDE 0.9% 50 ML IV SCH (11:30)
[2019-03-28 17:21] LABS: PLATELET ESTIMATE NORMAL
[2019-03-28] MEDS: DEXT 5%/0.45% NACL 1000ML 1,000 ML IV SCH (20:50)
[2019-03-29] VITALS (10 sets, daily range): BP systolic 113–146; BP diastolic 71–88
[2019-03-29] MEDS: IPRATROPIUM/ALBUTEROL 0.5-3(2.5)MG/3ML NEB HHN SCH ×5 (04:06→19:47)
[2019-03-29] MEDS: BLOOD SUGAR DIAGNOSTIC STRIP TEST SCH ×3 (05:46→17:30)
[2019-03-29] MEDS: METOCLOPRAMIDE HCL 10MG/2ML VIAL IV SCH ×3 (05:46→17:35)
[2019-03-29] MEDS: SODIUM CHLORIDE 0.9% INJ 3ML FLUSH IVF SCH ×3 (05:46→21:30)
[2019-03-29] MEDS: INSULIN LISPRO 100 UNITS/ML SUBCUT SCH ×3 (05:46→17:37)
[2019-03-29 06:39] LABS: HEMATOCRIT. 23.5 % (42.0-52.0); HEMOGLOBIN. 7.3 g/dL (14.0-18.0); MEAN CORPUSCULAR HEMOGLOBIN 27.8 pg (28.0-32.0); MEAN CORPUSCULAR VOLUME 90.2 fL (80.0-94.0); MEAN PLATELET VOLUME 10.7 fl (7.4-10.4); PLATELET 187 x1000/uL (130-400); RED BLOOD CELL COUNT 2.61 mill/uL (4.7-6.1); RED CELL DISTRIBUTION WIDTH 17.7 % (11.6-14.6)
[2019-03-29 06:42] LABS: INR 1.2; PROTHROMBIN TIME 11.9 sec (9.6-11.0)
[2019-03-29 07:10] LABS: CHLORIDE 116 mEq/L (98-107)
[2019-03-29 07:22] LABS: PHOSPHORUS 5.3 mg/dL (2.5-4.9)
[2019-03-29] MEDS: METHYLPREDNISOLONE SOD SUCC 40 MG/ML VIAL IV SCH (08:23)
[2019-03-29] MEDS: LACTULOSE 20G/30ML UDC PO SCH (08:24)
[2019-03-29] MEDS: FAMOTIDINE 20MG/2ML VIAL IV SCH (08:24)
[2019-03-29] MEDS: ACETYLCYSTEINE 100MG/ML 10% VIAL 4ML INH SCH ×2 (09:03→16:52)
[2019-03-29 10:28] LABS: PLATELET ESTIMATE NORMAL
[2019-03-29] MEDS ORDERED: MUC103 INH (11:56)
[2019-03-29] MEDS ORDERED: LACT10SO7 PO (11:56)
[2019-03-29] MEDS ORDERED: IPRA3AMP9 HHN (11:56)
[2019-03-29] MEDS ORDERED: FAMO40TA70 MT (11:57)
[2019-03-29] MEDS: DEXTROSE 5% WATER 1,000 ML IV SCH (13:32)
[2019-03-29] MEDS ORDERED: IOHEXOL-300 50 ML BOTTLE IV ONE (14:03)
[2019-03-29] MEDS ORDERED: LIDOCAINE HCL 1% 20ML VIAL (Pyxis) INJ ONE (14:04)
[2019-03-29] MEDS ORDERED: SODIUM BICARBONATE 4% (2.4MEQ) 5ML VIAL IV ONE (14:04)
[2019-03-29] MEDS ORDERED: LIDOCAINE HCL 2% JELLY 5ML ONE (14:04)
[2019-03-29] MEDS ORDERED: MORPHINE SULFATE 2 MG/ML CPJ (NOT FOR IM USE) IV PRN (17:15)
[2019-03-30] MEDS: ACETYLCYSTEINE 100MG/ML 10% VIAL 4ML INH SCH ×3 (00:26→13:26)
[2019-03-30] MEDS: IPRATROPIUM/ALBUTEROL 0.5-3(2.5)MG/3ML NEB HHN SCH ×5 (00:27→20:24)
[2019-03-30] MEDS: METOCLOPRAMIDE HCL 10MG/2ML VIAL IV SCH ×4 (01:10→18:18)
[2019-03-30] MEDS: BLOOD SUGAR DIAGNOSTIC STRIP TEST SCH ×4 (05:33→18:18)
[2019-03-30] MEDS: INSULIN LISPRO 100 UNITS/ML SUBCUT SCH ×4 (05:33→18:00)
[2019-03-30] MEDS: SODIUM CHLORIDE 0.9% INJ 3ML FLUSH IVF SCH ×3 (05:33→21:30)
[2019-03-30 07:54] LABS: PHOSPHORUS 5.3 mg/dL (2.5-4.9)
[2019-03-30 08:00] VITALS: BP 135/82
[2019-03-30 08:37] LABS: HEMATOCRIT. 25.6 % (42.0-52.0); HEMOGLOBIN. 7.8 g/dL (14.0-18.0); MEAN CORPUSCULAR HEMOGLOBIN 27.5 pg (28.0-32.0); MEAN PLATELET VOLUME 10.6 fl (7.4-10.4); PLATELET 189 x1000/uL (130-400); RED BLOOD CELL COUNT 2.85 mill/uL (4.7-6.1); RED CELL DISTRIBUTION WIDTH 17.8 % (11.6-14.6)
[2019-03-30] MEDS: FAMOTIDINE 20MG/2ML VIAL IV SCH (08:56)
[2019-03-30] MEDS: LACTULOSE 20G/30ML UDC PO SCH ×3 (08:56→18:19)
[2019-03-30] MEDS ORDERED: METHYLPREDNISOLONE SOD SUCC 40 MG/ML VIAL IV SCH (09:00)
[2019-03-30] MEDS: DEXTROSE 5% WATER 1,000 ML IV SCH (09:05)
[2019-03-30 09:22] LABS: PLATELET ESTIMATE NORMAL
[2019-03-30 10:00] VITALS: BP 139/88
[2019-03-30 12:00] VITALS: BP 127/85
[2019-03-30 13:31] VITALS: BP 136/79
[2019-03-30 18:00] VITALS: BP 139/76
[2019-03-30] MEDS ORDERED: PNEUMOCOCCAL 23-VAL P-SAC VAC 0.5 ML IM ONE (22:00)
[2019-03-31] VITALS (11 sets, daily range): BP systolic 131–147; BP diastolic 75–93
[2019-03-31] MEDS: METOCLOPRAMIDE HCL 10MG/2ML VIAL IV SCH ×4 (00:23→17:52)
[2019-03-31] MEDS: BLOOD SUGAR DIAGNOSTIC STRIP TEST SCH ×4 (00:29→17:53)
[2019-03-31] MEDS: IPRATROPIUM/ALBUTEROL 0.5-3(2.5)MG/3ML NEB HHN SCH ×4 (01:49→20:21)
[2019-03-31] MEDS: DEXTROSE 5% WATER 1,000 ML IV SCH (04:36)
[2019-03-31] MEDS: SODIUM CHLORIDE 0.9% INJ 3ML FLUSH IVF SCH ×3 (05:37→22:28)
[2019-03-31] MEDS: INSULIN LISPRO 100 UNITS/ML SUBCUT SCH ×4 (05:37→17:53)
[2019-03-31 05:46] LABS: HEMATOCRIT. 25.4 % (42.0-52.0); MEAN CORPUSCULAR HEMOGLOBIN 28.5 pg (28.0-32.0); MEAN CORPUSCULAR VOLUME 90.3 fL (80.0-94.0); MEAN PLATELET VOLUME 10.9 fl (7.4-10.4); PLATELET 158 x1000/uL (130-400); RED BLOOD CELL COUNT 2.81 mill/uL (4.7-6.1); RED CELL DISTRIBUTION WIDTH 17.8 % (11.6-14.6)
[2019-03-31 06:21] LABS: PHOSPHORUS 4.9 mg/dL (2.5-4.9)
[2019-03-31] MEDS: FAMOTIDINE 20MG/2ML VIAL IV SCH (08:51)
[2019-03-31] MEDS: LACTULOSE 20G/30ML UDC PO SCH (08:51)
[2019-03-31] MEDS ORDERED: PREDNISONE 20MG TABLET PO SCH (09:00)
[2019-03-31 11:27] LABS: PLATELET ESTIMATE NORMAL
[2019-04-01] VITALS (15 sets, daily range): BP systolic 114–156; BP diastolic 60–95
[2019-04-01] MEDS: METOCLOPRAMIDE HCL 10MG/2ML VIAL IV SCH ×5 (00:25→23:12)
[2019-04-01] MEDS: DEXTROSE 5% WATER 1,000 ML IV SCH ×2 (00:25→20:23)
[2019-04-01] MEDS: BLOOD SUGAR DIAGNOSTIC STRIP TEST SCH ×5 (00:26→23:13)
[2019-04-01] MEDS: ACETYLCYSTEINE 100MG/ML 10% VIAL 4ML INH SCH ×3 (01:24→14:30)
[2019-04-01] MEDS: IPRATROPIUM/ALBUTEROL 0.5-3(2.5)MG/3ML NEB HHN SCH ×4 (01:24→20:53)
[2019-04-01] MEDS: INSULIN LISPRO 100 UNITS/ML SUBCUT SCH ×5 (05:27→23:12)
[2019-04-01] MEDS: SODIUM CHLORIDE 0.9% INJ 3ML FLUSH IVF SCH ×3 (05:27→23:01)
[2019-04-01 07:16] LABS: HEMATOCRIT. 25.3 % (42.0-52.0); HEMOGLOBIN. 8.1 g/dL (14.0-18.0); MEAN CORPUSCULAR HEMOGLOBIN 28.6 pg (28.0-32.0); MEAN CORPUSCULAR VOLUME 89.1 fL (80.0-94.0); MEAN PLATELET VOLUME 10.6 fl (7.4-10.4); PLATELET 127 x1000/uL (130-400); RED BLOOD CELL COUNT 2.84 mill/uL (4.7-6.1); RED CELL DISTRIBUTION WIDTH 17.1 % (11.6-14.6)
[2019-04-01 08:24] LABS: PHOSPHORUS 4.7 mg/dL (2.5-4.9)
[2019-04-01] MEDS: LACTULOSE 20G/30ML UDC PO SCH (09:26)
[2019-04-01] MEDS: PREDNISONE 10MG TABLET PO SCH (09:26)
[2019-04-01] MEDS: FAMOTIDINE 20MG/2ML VIAL IV SCH (09:26)
[2019-04-01 17:18] LABS: PLATELET ESTIMATE NORMAL
[2019-04-02] VITALS (16 sets, daily range): BP systolic 117–154; BP diastolic 68–103
[2019-04-02] MEDS: ACETYLCYSTEINE 100MG/ML 10% VIAL 4ML INH SCH ×2 (01:29→09:33)
[2019-04-02] MEDS: IPRATROPIUM/ALBUTEROL 0.5-3(2.5)MG/3ML NEB HHN SCH ×4 (01:30→19:58)
[2019-04-02] MEDS: SODIUM CHLORIDE 0.9% INJ 3ML FLUSH IVF SCH ×3 (05:20→22:00)
[2019-04-02] MEDS: METOCLOPRAMIDE HCL 10MG/2ML VIAL IV SCH ×4 (05:20→23:27)
[2019-04-02] MEDS: INSULIN LISPRO 100 UNITS/ML SUBCUT SCH ×4 (05:21→23:27)
[2019-04-02] MEDS: BLOOD SUGAR DIAGNOSTIC STRIP TEST SCH ×4 (05:21→23:27)
[2019-04-02] MEDS: LACTULOSE 20G/30ML UDC PO SCH (08:55)
[2019-04-02] MEDS: FAMOTIDINE 20MG/2ML VIAL IV SCH (08:55)
[2019-04-02] MEDS: PREDNISONE 10MG TABLET PO SCH (08:56)
[2019-04-02 10:26] LABS: HEMATOCRIT. 27.7 % (42.0-52.0); HEMOGLOBIN. 8.7 g/dL (14.0-18.0); MEAN CORPUSCULAR VOLUME 89.3 fL (80.0-94.0); PLATELET 121 x1000/uL (130-400); RED CELL DISTRIBUTION WIDTH 17.5 % (11.6-14.6)
[2019-04-02 10:53] LABS: PHOSPHORUS 3.6 mg/dL (2.5-4.9)
[2019-04-02 10:58] LABS: PLATELET ESTIMATE SLIGHTLY DECREASED
[2019-04-02] MEDS: DEXTROSE 5% WATER 1,000 ML IV SCH (15:06)
[2019-04-03] VITALS (13 sets, daily range): BP systolic 115–146; BP diastolic 65–84
[2019-04-03] MEDS: IPRATROPIUM/ALBUTEROL 0.5-3(2.5)MG/3ML NEB HHN SCH ×4 (02:23→20:24)
[2019-04-03] MEDS: BLOOD SUGAR DIAGNOSTIC STRIP TEST SCH ×4 (05:01→23:55)
[2019-04-03] MEDS: INSULIN LISPRO 100 UNITS/ML SUBCUT SCH ×3 (05:01→18:00)
[2019-04-03] MEDS: METOCLOPRAMIDE HCL 10MG/2ML VIAL IV SCH ×3 (05:31→17:37)
[2019-04-03] MEDS: SODIUM CHLORIDE 0.9% INJ 3ML FLUSH IVF SCH ×3 (05:31→22:36)
[2019-04-03 06:38] LABS: HEMATOCRIT. 26.9 % (42.0-52.0); HEMOGLOBIN. 8.5 g/dL (14.0-18.0); MEAN CORPUSCULAR HEMOGLOBIN 28.4 pg (28.0-32.0); MEAN CORPUSCULAR VOLUME 90.3 fL (80.0-94.0); PLATELET 98 x1000/uL (130-400); RED BLOOD CELL COUNT 2.98 mill/uL (4.7-6.1); RED CELL DISTRIBUTION WIDTH 17.5 % (11.6-14.6)
[2019-04-03 07:13] LABS: CHLORIDE 112 mEq/L (98-107)
[2019-04-03 07:18] LABS: PHOSPHORUS 3.6 mg/dL (2.5-4.9)
[2019-04-03] MEDS: LACTULOSE 20G/30ML UDC PO SCH (08:24)
[2019-04-03] MEDS: FAMOTIDINE 20MG/2ML VIAL IV SCH (08:24)
[2019-04-03 14:08] LABS: PLATELET ESTIMATE DECREASED
[2019-04-03] MEDS: ACETYLCYSTEINE 100MG/ML 10% VIAL 4ML INH SCH (16:19)
[2019-04-03] MEDS: IPRATROPIUM/ALBUTEROL 0.5-3(2.5)MG/3ML NEB HHN PRN (16:19)
[2019-04-04] VITALS (13 sets, daily range): BP systolic 103–147; BP diastolic 62–98
[2019-04-04] MEDS: METOCLOPRAMIDE HCL 10MG/2ML VIAL IV SCH ×5 (00:02→23:34)
[2019-04-04] MEDS: ACETYLCYSTEINE 100MG/ML 10% VIAL 4ML INH SCH ×3 (01:58→17:29)
[2019-04-04] MEDS: IPRATROPIUM/ALBUTEROL 0.5-3(2.5)MG/3ML NEB HHN SCH ×4 (01:59→20:33)
[2019-04-04] MEDS: BLOOD SUGAR DIAGNOSTIC STRIP TEST SCH ×4 (06:00→23:34)
[2019-04-04] MEDS: INSULIN LISPRO 100 UNITS/ML SUBCUT SCH ×5 (06:00→23:46)
[2019-04-04] MEDS: SODIUM CHLORIDE 0.9% INJ 3ML FLUSH IVF SCH ×3 (06:48→22:21)
[2019-04-04 07:20] LABS: BASOPHILS % 0.2 % (0.0-2.0); EOSINOPHILS % 3.9 % (0.0-5.0); HEMATOCRIT. 27.4 % (42.0-52.0); HEMOGLOBIN. 8.6 g/dL (14.0-18.0); LYMPHOCYTES % 8.6 % (20.0-50.0); MEAN CORPUSCULAR HEMOGLOBIN 28.2 pg (28.0-32.0); MEAN PLATELET VOLUME 11.2 fl (7.4-10.4); MONOCYTES % 5.7 % (2.0-8.0); NEUTROPHILS % 81.6 % (40.0-76.0); PLATELET 113 x1000/uL (130-400); RED BLOOD CELL COUNT 3.05 mill/uL (4.7-6.1); RED CELL DISTRIBUTION WIDTH 17.5 % (11.6-14.6)
[2019-04-04 07:38] LABS: CHLORIDE 112 mEq/L (98-107)
[2019-04-04 08:00] LABS: PHOSPHORUS 3.3 mg/dL (2.5-4.9)
[2019-04-04] MEDS: LACTULOSE 20G/30ML UDC PO SCH (09:00)
[2019-04-04] MEDS: FAMOTIDINE 20MG/2ML VIAL IV SCH (09:07)
[2019-04-05] VITALS (12 sets, daily range): BP systolic 101–145; BP diastolic 64–92
[2019-04-05] MEDS: IPRATROPIUM/ALBUTEROL 0.5-3(2.5)MG/3ML NEB HHN SCH ×4 (00:59→20:21)
[2019-04-05] MEDS: ACETYLCYSTEINE 100MG/ML 10% VIAL 4ML INH SCH ×3 (01:00→14:12)
[2019-04-05] MEDS: BLOOD SUGAR DIAGNOSTIC STRIP TEST SCH ×3 (06:00→17:45)
[2019-04-05] MEDS: INSULIN LISPRO 100 UNITS/ML SUBCUT SCH ×3 (06:00→17:45)
[2019-04-05] MEDS: SODIUM CHLORIDE 0.9% INJ 3ML FLUSH IVF SCH ×3 (06:12→21:11)
[2019-04-05] MEDS: METOCLOPRAMIDE HCL 10MG/2ML VIAL IV SCH ×3 (06:12→18:08)
[2019-04-05 06:48] LABS: BASOPHILS % 0.4 % (0.0-2.0); EOSINOPHILS % 3.1 % (0.0-5.0); HEMATOCRIT. 27.6 % (42.0-52.0); HEMOGLOBIN. 8.8 g/dL (14.0-18.0); LYMPHOCYTES % 8.1 % (20.0-50.0); MEAN CORPUSCULAR HEMOGLOBIN 28.6 pg (28.0-32.0); MEAN PLATELET VOLUME 11.4 fl (7.4-10.4); MONOCYTES % 5.5 % (2.0-8.0); NEUTROPHILS % 82.9 % (40.0-76.0); PLATELET 109 x1000/uL (130-400); RED BLOOD CELL COUNT 3.06 mill/uL (4.7-6.1); RED CELL DISTRIBUTION WIDTH 17.3 % (11.6-14.6)
[2019-04-05 06:51] LABS: CHLORIDE 112 mEq/L (98-107)
[2019-04-05 06:59] LABS: PHOSPHORUS 3.8 mg/dL (2.5-4.9)
[2019-04-05] MEDS: LACTULOSE 20G/30ML UDC PO SCH (09:36)
[2019-04-05] MEDS: FAMOTIDINE 20MG/2ML VIAL IV SCH (09:36)
[2019-04-05] MEDS: ACETAMINOPHEN 650MG/20.3ML UDC GT PRN (11:52)
[2019-04-06] VITALS (12 sets, daily range): BP systolic 107–140; BP diastolic 64–90
[2019-04-06] MEDS: BLOOD SUGAR DIAGNOSTIC STRIP TEST SCH ×5 (00:21→23:44)
[2019-04-06] MEDS: METOCLOPRAMIDE HCL 10MG/2ML VIAL IV SCH ×5 (00:22→23:43)
[2019-04-06] MEDS: ACETYLCYSTEINE 100MG/ML 10% VIAL 4ML INH SCH (01:30)
[2019-04-06] MEDS: IPRATROPIUM/ALBUTEROL 0.5-3(2.5)MG/3ML NEB HHN SCH ×4 (01:35→20:48)
[2019-04-06] MEDS: INSULIN LISPRO 100 UNITS/ML SUBCUT SCH ×5 (05:20→23:45)
[2019-04-06] MEDS: SODIUM CHLORIDE 0.9% INJ 3ML FLUSH IVF SCH ×3 (05:20→22:00)
[2019-04-06 08:35] LABS: BASOPHILS % 0.6 % (0.0-2.0); EOSINOPHILS % 4.3 % (0.0-5.0); HEMATOCRIT. 27.3 % (42.0-52.0); HEMOGLOBIN. 8.5 g/dL (14.0-18.0); LYMPHOCYTES % 9.2 % (20.0-50.0); MEAN CORPUSCULAR HEMOGLOBIN 28.1 pg (28.0-32.0); MEAN CORPUSCULAR VOLUME 90.6 fL (80.0-94.0); MEAN PLATELET VOLUME 11.7 fl (7.4-10.4); MONOCYTES % 5.5 % (2.0-8.0); NEUTROPHILS % 80.4 % (40.0-76.0); PLATELET 108 x1000/uL (130-400); RED BLOOD CELL COUNT 3.02 mill/uL (4.7-6.1); RED CELL DISTRIBUTION WIDTH 17.4 % (11.6-14.6)
[2019-04-06 08:38] LABS: CHLORIDE 111 mEq/L (98-107)
[2019-04-06 08:43] LABS: PHOSPHORUS 4.1 mg/dL (2.5-4.9)
[2019-04-06] MEDS: LACTULOSE 20G/30ML UDC PO SCH (10:09)
[2019-04-06] MEDS: FAMOTIDINE 20MG/2ML VIAL IV SCH (10:10)
[2019-04-07] VITALS (8 sets, daily range): BP systolic 106–151; BP diastolic 54–115
[2019-04-07] MEDS: IPRATROPIUM/ALBUTEROL 0.5-3(2.5)MG/3ML NEB HHN SCH ×4 (02:51→20:16)
[2019-04-07] MEDS: BLOOD SUGAR DIAGNOSTIC STRIP TEST SCH ×3 (05:38→17:50)
[2019-04-07] MEDS: SODIUM CHLORIDE 0.9% INJ 3ML FLUSH IVF SCH ×2 (05:38→13:02)
[2019-04-07] MEDS: METOCLOPRAMIDE HCL 10MG/2ML VIAL IV SCH ×3 (05:38→17:48)
[2019-04-07] MEDS: INSULIN LISPRO 100 UNITS/ML SUBCUT SCH ×4 (06:00→17:51)
[2019-04-07] MEDS: FAMOTIDINE 20MG/2ML VIAL IV SCH (08:40)
[2019-04-07] MEDS: LACTULOSE 20G/30ML UDC PO SCH (08:40)
[2019-04-07 10:08] LABS: BASOPHILS % 0.6 % (0.0-2.0); EOSINOPHILS % 3.7 % (0.0-5.0); HEMATOCRIT. 27.2 % (42.0-52.0); HEMOGLOBIN. 8.4 g/dL (14.0-18.0); LYMPHOCYTES % 9.7 % (20.0-50.0); MEAN CORPUSCULAR VOLUME 90.2 fL (80.0-94.0); MEAN PLATELET VOLUME 11.4 fl (7.4-10.4); MONOCYTES % 6.4 % (2.0-8.0); NEUTROPHILS % 79.6 % (40.0-76.0); PLATELET 100 x1000/uL (130-400); RED BLOOD CELL COUNT 3.01 mill/uL (4.7-6.1); RED CELL DISTRIBUTION WIDTH 17.1 % (11.6-14.6)
[2019-04-07 10:27] LABS: CHLORIDE 111 mEq/L (98-107)
[2019-04-07] MEDS ORDERED: INSLIS SUBCUT (11:19)
== END 2019-04-07 20:53 | DRG 3 ==
LOC: ER 12:11 → MICUNO 17:06 → EDBEDREQ 17:09 → EDBEDREQTM 17:09 → EDBEDREQSVC 17:09 → ENRESERV 17:29 → 5EST 03-27 17:40
PROVIDERS: ADMIT Family Medicine; ATTEND Family Medicine
PROC: 30233N1 Transfusion of Nonautologous Red Blood Cells into Peripheral Vein, Percutaneous Approach (ICD-10-PCS; 2019-03-13)
PROC: 5A1955Z Respiratory Ventilation, Greater than 96 Consecutive Hours (ICD-10-PCS; principal; 2019-03-14)
PROC: 05HY33Z Insertion of Infusion Device into Upper Vein, Percutaneous Approach (ICD-10-PCS; 2019-03-14)
PROC: B54MZZA Ultrasonography of Right Upper Extremity Veins, Guidance (ICD-10-PCS; 2019-03-14)
PROC: 30233K1 Transfusion of Nonautologous Frozen Plasma into Peripheral Vein, Percutaneous Approach (ICD-10-PCS; 2019-03-14)
PROC: 0BH17EZ Insertion of Endotracheal Airway into Trachea, Via Natural or Artificial Opening (ICD-10-PCS; 2019-03-14)
PROC: 0DJ08ZZ Inspection of Upper Intestinal Tract, Via Natural or Artificial Opening Endoscopic (ICD-10-PCS; 2019-03-18)
PROC: 0GTJ0ZZ Resection of Thyroid Gland Isthmus, Open Approach (ICD-10-PCS; 2019-03-25)
PROC: 0B110F4 Bypass Trachea to Cutaneous with Tracheostomy Device, Open Approach (ICD-10-PCS; 2019-03-25)
PROC: 0DJ08ZZ Inspection of Upper Intestinal Tract, Via Natural or Artificial Opening Endoscopic (ICD-10-PCS; 2019-03-26)
PROC: 0DH63UZ Insertion of Feeding Device into Stomach, Percutaneous Approach (ICD-10-PCS; 2019-03-29)
DX: A41.9 Sepsis, unspecified organism (principal); E43 Unspecified severe protein-calorie malnutrition; I50.33 Acute on chronic diastolic (congestive) heart failure; J96.00 Acute respiratory failure, unspecified whether with hypoxia or hypercapnia; J69.0 Pneumonitis due to inhalation of food and vomit; K29.71 Gastritis, unspecified, with bleeding; G93.41 Metabolic encephalopathy; D62 Acute posthemorrhagic anemia; N17.9 Acute kidney failure, unspecified; M62.82 Rhabdomyolysis; I42.9 Cardiomyopathy, unspecified; D68.59 Other primary thrombophilia; I13.0 Hypertensive heart and chronic kidney disease with heart failure and stage 1 through stage 4 chronic kidney disease, or unspecified chronic kidney disease; I67.82 Cerebral ischemia; R57.9 Shock, unspecified; E87.0 Hyperosmolality and hypernatremia; Z68.1 Body mass index [BMI] 19.9 or less, adult; Z99.11 Dependence on respirator [ventilator] status; N18.9 Chronic kidney disease, unspecified; I48.2 Chronic atrial fibrillation; M48.02 Spinal stenosis, cervical region; D50.9 Iron deficiency anemia, unspecified; E66.01 Morbid (severe) obesity due to excess calories; F03.90 Unspecified dementia, unspecified severity, without behavioral disturbance, psychotic disturbance, mood disturbance, and anxiety; G47.30 Sleep apnea, unspecified; G62.9 Polyneuropathy, unspecified; I35.0 Nonrheumatic aortic (valve) stenosis; K44.9 Diaphragmatic hernia without obstruction or gangrene; K74.60 Unspecified cirrhosis of liver; M25.78 Osteophyte, vertebrae; R00.1 Bradycardia, unspecified; L89.90 Pressure ulcer of unspecified site, unspecified stage; K72.90 Hepatic failure, unspecified without coma; M47.892 Other spondylosis, cervical region; R13.12 Dysphagia, oropharyngeal phase; T45.515A Adverse effect of anticoagulants, initial encounter; Z79.01 Long term (current) use of anticoagulants; Z82.49 Family history of ischemic heart disease and other diseases of the circulatory system; Z95.810 Presence of automatic (implantable) cardiac defibrillator
CPT/HCPCS: 31500; 36415; 36573; 36598; 36600; 49450; 71045; 71250; 72170; 73552; 74018; 74176; 76770; 78580; 80048; 80061; 80076; 80202; 80305; 80320; 81003; 82140; 82270; 82375; 82550; 82553; 82607; 82728; 82746; 82805; 82962; 83540; 83550; 83735; 83880; 84100; 84478; 84484; 85014; 85018; 86850; 86900; 86920; 86927; 87070; 90732; 93005; 93306; 93970; 94002; 94003; 94640; 96374; 99285; A6261; A9558; C1725; C1769; C1892; C9113; J0330; J0690; J0692; J0696; J1200; J1265; J1815; J2060; J2250; J2270; J2704; J2765; J2920; J3010; J3370; J3430; J3480; J3490; J7030; J7040; J7060; J7070; J7512; J7608; J7620; L8514; P9016; P9017; P9047; Q9967; A4315; G0480